=== PATIENT | male | born 1970 | race Caucasian/White ===

== ENCOUNTER 2017-10-04 08:58 | Inpatient (IN) | payer OTHER ==
[2017-10-04] VITALS (10 sets, daily range): BP systolic 140–177; BP diastolic 55–99
[~2017-10-04] VITALS: Ht 177.8 cm; Wt 91.3 kg
--- NOTE | ~2017-10-04 | CON ---
[place], [place] REPORT OF CONSULTATION NAME: PAYAL PÉREZ UNIT #: [id number] ROOM: 511 DOCTOR: KAYKAY QUIROZ MD BIRTHDATE: [birth year] DOS: 10/07/2017 CHIEF COMPLAINT: "I am not sleeping." HISTORY OF PRESENT ILLNESS: This is a 47-year-old white male who presented to the [facility] emergency room with complaints of sudden and severe abdominal pain. The patient has been hospitalized now on the 5th floor as this has been continued to be worked up and resolved. From a psychiatric standpoint, the patient sees in [place] and does not have a counselor. He has been prescribed Celexa 40 mg at bedtime and states that up until this point that the Celexa was effective at controlling his mood and depression. At home prior to these physical issues, he reports good sleep and appetite, good ability to attend to his ADLs and no side effects from the Celexa. He does note that since he has been in the hospital, his sleep has been disturbed and that the Restoril that has been prescribed for him has been ineffective to date. He requested no medication changes be made other than perhaps a different sleeping medication. MENTAL STATUS: He is alert and oriented with some gaps. Mood does seem to be somewhat depressed, but it seems situationally based. He is rather flat and blunted, but he does brighten upon approach and is able to even joke. There is no hypomania or jose armando. There are no auditory or visual hallucinations. No delusions, no paranoia. Short, intermediate, and long-term memory for the most part are intact. DIAGNOSIS: Major depression, recurrent. PLAN: I will maintain him on his Celexa 40 mg at bedtime. Discontinue Restoril in lieu of Halcion 0.25 mg at bedtime as needed for sleep. Should this not be effective, please consult me and I will be happy to see the patient again. KAYKAY QUIROZ MD CM:CONSTR:REPORT OF CONSULTATION 0840 10/07/17 0912 interface
[~2017-10-04 08:58] MED LIST: CELEXA40 MG PO; CLARITIN10 MG PO; COMPAZINE10 MG PO; CORTISPORIN 1%-10 M1 OT; MOTRIN800 MG PO; NORFLEX100 MG PO; RISPERDAL0.5 MG PO; TRAMADOL HCL50 MG PO; TRAZODONE100 MG PO; TRIMOX500 MG PO; ZANTAC150 MG PO; ZOLOFT100 MG PO
[2017-10-04 09:53] LABS: HEMATOCRIT 48.2 % (42.0-52.0); HEMOGLOBIN 17.3 g/dl (14.0-18.0); MEAN CELL VOLUME 92.2 fl (80.0-94.0); MEAN CORPUSCULAR HGB 33.1 pg (27.0-31.0); MEAN CORPUSCULAR HGB CONC 35.9 g/dl (33.0-37.0); MEAN PLATELET VOLUME 8.9 fl (9.6-12.3); PLATELET COUNT AUTOMATED 266 10*3/uL (130-400); RED BLOOD COUNT 5.23 10*6/uL (4.50-5.90); RED CELL DISTRI WIDTH 12.6 % (0-14.5); WHITE BLOOD COUNT 15.9 10*3/uL (4.8-10.8)
[2017-10-04 10:10] LABS: ALBUMIN 4.7 gm/dl (3.1-4.5); CREATININE 2.46 mg/dL (0.70-1.30); POTASSIUM 4.8 mmol/L (3.5-5.1); TOTAL PROTEIN 8.4 gm/dL (6.4-8.2)
[2017-10-04 10:11] LABS: PLATELET SUFFICIENCY NORMAL (NORMAL); TOTAL CELLS COUNTED 100 #CELLS
--- NOTE | 2017-10-04 11:00 | NUR ---
PATIENT STATES THAT DILAUDID HAS NOT HELPED PATIENT. DR MAZA NOTIFIED.
--- NOTE | 2017-10-04 13:26 | NUR ---
PATIENT IS SAYING PAIN IS 10/10 AT THIS TIME.
--- NOTE | 2017-10-04 13:32 | NUR ---
NOTIFIED TORIBIO STAFFORD OF PATIENT HR INCREASED FROM 99 TO 124. PATIENT PLACED ONTO ROLLER INSPECTOR AND MENDER AT THIS TIME. VITAL SIGNS RECORDED.
--- NOTE | 2017-10-04 14:32 | NUR ---
SURGERY STATES THAT THEY WILL BE HERE TO GET THE PATIENT. PATIENT IS RESTING IN BED WATCHING TV AT THIS TIME. APPEARS IN NO DISTRESS.
--- NOTE | 2017-10-04 14:42 | NUR ---
REPORT GIVEN TO TANK MUHAMMAD AT THIS TIME ON 5TH FLOOR.
--- NOTE | 2017-10-04 14:49 | NUR ---
SURGERY HERE AT THIS TIME FOR PATIENT TRANSPORT TO [facility]. PATIENT HAS NOW LEFT THE FLOOR.
[2017-10-04 17:20] LABS: BILIRUBIN 1+ (NEGATIVE); BLOOD 3+ (NEGATIVE); CLARITY TURBID (CLEAR); COLOR RED (YELLOW); GLUCOSE NEGATIVE (NEGATIVE); KETONE 1+ (NEGATIVE); NITRITE POSITIVE (NEGATIVE); PH 6.5 (5.0-9.0)
[2017-10-04 17:21] LABS: LEUKO ESTERASE TRACE (NEGATIVE)
[2017-10-04 17:22] LABS: RBC TNTC rbc/hpf (0-2)
--- NOTE | 2017-10-04 17:27 | NUR ---
I JATIN INSERTED A AARON CATHETER, 16 STATELESS. BEFORE REACHING HUB PT HAD A MODERATE AMOUNT OF BLOODY DRAINAGE. CATHETER REMOVED & REINSERTED WITH SAME RESULTS. CALLED TO ROOM. I ALSO BLADDER SCANNED PT FOR 137 ML. INFLATED BALLOON. NO CATHTER FELT IN PTS SCROTUM. URINALYSIS SENT, ALSO ORDERED TEST FOR URINE MYOGLOBIN.
--- NOTE | 2017-10-04 17:44 | NUR ---
DECIDED TO CHANGE FROM LAPAROSCOPY TO LAPAROTOMY. CASE OPENED DUE TO RUPTURED BLADDER.
--- NOTE | 2017-10-04 20:40 | NUR ---
AT 2034 PT JUST ARRIVED TO FLOOR FROM OR...IS PLACED AT BEDSIDE UNABLE TO START IS AT THIS TIME
--- NOTE | 2017-10-04 20:41 | NUR ---
A 47, admitted to 5E, under the services of RADHA Jenkins DO with a diagnosis of ABDOMINAL PAIN. Chief complaint is ACUTE ABDOMINAL PAIN. Patient arrived via ambulance from ER. Monitor applied. Initial assessment completed. Vital signs taken and recorded. RADHA JENKINS DO notified of admission to the unit. Orders received. See assessment for past medical history, medications and allergies. Patient and/or family oriented to unit. visitation policy reviewed. Clothing/patient valuable form completed. MARIANGEL PALACIO
[2017-10-04] MEDS ORDERED: NEURONTIN800 MG PO (21:56)
[2017-10-05] VITALS: BP 118/70
--- NOTE | 2017-10-05 04:00 | NUR ---
PATIENT WALKED IN HALLWAY. NO PROBLEMS NOTED, PATIENT STEADY ON HIS FEET. WALKED APPROX 250 FEET. AARON CATHETER DRAINING RED COLORED URINE. 60CC OUT IN BRI DRAIN.
--- NOTE | 2017-10-05 07:30 | NUR ---
ASSUMED CARE OF PT AT THIS TIME, RESPS EASY AND NONLABORED WITH NO S/S OF DISTRESS CALL LIGHT WITH IN REACH
[2017-10-05 07:56] LABS: BASO % 0.1 % (0.0-1.0); HEMOGLOBIN 13.8 g/dl (14.0-18.0); LYMPH # 0.8 10*3/uL (1.3-4.4); LYMPH % 7.4 % (27.0-41.0); MEAN CELL VOLUME 96.8 fl (80.0-94.0); MEAN CORPUSCULAR HGB 33.7 pg (27.0-31.0); MEAN CORPUSCULAR HGB CONC 34.8 g/dl (33.0-37.0); MEAN PLATELET VOLUME 9.3 fl (9.6-12.3); MONO % 8.5 % (3.0-9.0); NEUT # 9.3 10*3/uL (2.3-7.9); NEUT % 83.6 % (47.0-73.0); RED BLOOD COUNT 4.09 10*6/uL (4.50-5.90); WHITE BLOOD COUNT 11.2 10*3/uL (4.8-10.8)
[2017-10-05 07:57] LABS: HEMATOCRIT 39.6 % (42.0-52.0); PLATELET COUNT AUTOMATED 183 10*3/uL (130-400)
[2017-10-05 08:00] VITALS: BP 125/78
--- NOTE | 2017-10-05 08:00 | NUR ---
[employer] in to talk to patient. Patient states lives at HOME ALONE with . There are 0 steps in the home. Physician: DR ROBIN Pharmacy: [facility] Home health services: NONE Patient's level of ADLs: INDEPENDENT Patient has working utilities: YES DME: NONE Follow-up physician's appointment after d/c: WILL BE MADE PRIOR TO DC Does patient want to access PORTAL?: Discharge plan HOME. SRIKANTH CRAMER
--- NOTE | 2017-10-05 08:02 | NUR ---
PT C/O SURGICAL INCISION PAIN AT THIS TIME AND REQUESTED PAIN MEDICATION ADMINISTERED MORPHINE IVP PRN PER ORDERS WILL MONITOR EFFECTS, CALL LIGHT WITH IN REACH
[2017-10-05 08:16] LABS: ALBUMIN 3.2 gm/dl (3.1-4.5); ALKALINE PHOSPHATASE 77 U/L (45-117); BUN 11 mg/dl (7-24); CHLORIDE 104 mmol/L (98-107); CHOLESTEROL 196 mg/dL (<200); CREATININE 1.05 mg/dL (0.70-1.30); FREE T4 1.36 ng/dl (0.76-1.46); HDL CHOLESTEROL 56 mg/dl (40-60); LDL CHOLESTEROL 122 mg/dL (9-159); PHOSPHOROUS 2.1 mg/dL (2.5-4.9); POTASSIUM 4.1 mmol/L (3.5-5.1); SGOT/AST 26 IU/L (3-35); SGPT/ALT 27 U/L (12-78); SODIUM 138 mmol/L (136-145); TOTAL PROTEIN 6.2 gm/dL (6.4-8.2); TRIGLYCERIDES 90 mg/dl (<150); VLDL CHOLESTEROL 18 mg/dL (6-40)
[2017-10-05 08:21] LABS: THYROID STIM HORMONE (HS) 0.661 uIU/ml (0.358-4.75)
--- NOTE | 2017-10-05 09:15 | NUR ---
PT USING IS AND ACHIEVING A VOLUME OF 1200. ENCOURAGED Q 2 HOUR USE OF 10 BREATHS. LUNG SOUNDS ARE CLEAR.
[2017-10-05 09:43] LABS: VITAMIN D, 25-HYDROXY 14.8 ng/mL (30-100)
--- NOTE | 2017-10-05 09:57 | NUR ---
PRN PAIN MEDICATION EFFECTIVE AT THIS TIME, REPORTS DECREASED PAIN LEVEL AT THIS TIME.
--- NOTE | 2017-10-05 10:31 | NUR ---
This nurse went into evaluate patient surgical incision and dressing is intact to abdomen with no breakthrough drainage or odor noted.
[2017-10-05 12:00] VITALS: BP 131/68
--- NOTE | 2017-10-05 14:48 | NUR ---
this client has a mental jared hx but is not presently here for suicidal ideation, client does not require any intervention at this time.
[2017-10-05 16:00] VITALS: BP 147/80
[2017-10-05 18:50] VITALS: BP 136/74
[2017-10-05 20:00] VITALS: BP 141/73
[2017-10-05] MEDS ORDERED: ZOLOFT100 MG PO (20:39)
[2017-10-05] MEDS ORDERED: GEODON80 MG PO (20:39)
[2017-10-05] MEDS ORDERED: SEROQUEL200 MG PO (20:41)
--- NOTE | 2017-10-05 20:46 | NUR ---
NOTIFIED DR MAZA OF UPDATED MED REC FROM PATIENTS FRIEND BRINGING IN HIS HOME MEDICATIONS. ALSO NOTIFIED HIM OF THE AARON DRAINING A BRIGHTER RED URINE THAN PREVIOUSLY NOTED. STATED HE WILL TAKE A LOOK AT HIS MEDICATIONS. NO NEW ORDERS AT THIS TIME.
--- NOTE | 2017-10-05 22:37 | NUR ---
TALKED TO DR WILLSON ABOUT PATIENTS BRIGHTER RED URINE DRAINING IN THE AARON. NO NEW ORDERS AT THIS TIME.
--- NOTE | 2017-10-05 22:39 | NUR ---
ATTEMPTED TO CONTACT DR QUIROZ FOR CONSULT. NO ANSWER AT THIS TIME.
[2017-10-06] VITALS: BP 139/79
--- NOTE | 2017-10-06 01:29 | NUR ---
PATIENT SLEEPING, RESPIRATIONS EASY/REG, FLUIDS MAINTAINED PER ORDER. NO SXS OF DISTRESS. CALL LIGHT IN REACH.
--- NOTE | 2017-10-06 02:08 | NUR ---
REQUESTED AND RECEIVED MORPHINE IV PER PRN ORDER FOR COMPLAINTS OF BLADDER PAIN RATING A 10. IV FLUIDS MAINTAINED. CALL LIGHT WITHIN REACH. WILL MONITOR FOR EFFECTIVENESS
--- NOTE | 2017-10-06 04:54 | NUR ---
PATIENT WAS C/O DISCOMFORT FROM HIS AARON. UPON ASSESSMENT HIS ABDOMEN WAS DISTENDED AND PATIENT WAS IN A LOT OF PAIN RATING IT A 10/10. HE WAS ALSO VERY NAUSEATED. NOTIFIED DR MAZA AND HE ORDERED STAT BLOOD WORK. NOTIFIED DR GARNETT AND WAS INSTRUCTED FOR GENTLE IRRIGATION WELL STOPPING FLUIDS. AFTER IRRIGATION A TOTAL OF 1450 WAS DRAINED FROM THE PATIENTS AARON. HE VOICED MILD RELIEF. I MEDICATED HIM WITH PRN MORPHINE AND ZOFRAN ORDERED. DR Katy MAZA AND DR Wm STEPHENS CAME TO SEE PATIENT AND DISCUSSED POSSIBLE TRANSFER TO [facility]. THEY ARE CURRENTLY ON THE PHONE WITH DR WILLSON AT THIS TIME.
[2017-10-06 05:08] LABS: BASO % 0.3 % (0.0-1.0); HEMATOCRIT 39.8 % (42.0-52.0); HEMOGLOBIN 13.7 g/dl (14.0-18.0); LYMPH % 10.1 % (27.0-41.0); MEAN CELL VOLUME 96.8 fl (80.0-94.0); MEAN CORPUSCULAR HGB 33.3 pg (27.0-31.0); MEAN CORPUSCULAR HGB CONC 34.4 g/dl (33.0-37.0); MONO # 0.9 10*3/uL (0.1-1.0); NEUT # 7.6 10*3/uL (2.3-7.9); NEUT % 80.2 % (47.0-73.0); PLATELET COUNT AUTOMATED 187 10*3/uL (130-400); RED BLOOD COUNT 4.11 10*6/uL (4.50-5.90); RED CELL DISTRI WIDTH 12.8 % (0-14.5); WHITE BLOOD COUNT 9.4 10*3/uL (4.8-10.8)
--- NOTE | 2017-10-06 05:15 | NUR ---
DR WILLSON AND DR Wm STEPHENS CONVERSING REGARDING PATIENT CONDITION. DR WILLSON WISHING AARON TO BE REMOVED AND 3 WAY CATH PLACED (PREFERS 24 OR 26 GAUGE). ALSO REQUESTING ASTRONOMY TEACHER BE MADE AWARE OF POSSIBLE OR - CARMINA NOTIFIED
[2017-10-06 05:22] LABS: BUN 6 mg/dl (7-24); CHLORIDE 103 mmol/L (98-107); CREATININE 0.97 mg/dL (0.70-1.30); POTASSIUM 3.9 mmol/L (3.5-5.1); SODIUM 136 mmol/L (136-145)
--- NOTE | 2017-10-06 05:28 | NUR ---
BLADDER SCANNED PATIENT WITH A TOTAL OF 19ML. PATIENT STATES HE FEELS MUCH BETTER NOW. ABDOMEN IS STILL DISTENDED. DRY STERILE DRESSING APPLIED TO INCISION SITE AT THIS TIME
--- NOTE | 2017-10-06 05:48 | NUR ---
MEDICATED WITH 1 TIME DOSE DILAUDID IV PER PRN ORDER PRIOR TO CATH EXCHANGE.
--- NOTE | 2017-10-06 06:10 | NUR ---
AARON CATH REMOVED. [address] WAY CATH PLACED WITH IRRIGATION. URINE CLEAR WITH MINIMAL CLOTS. PATIENT TOLERATED WELL
--- NOTE | 2017-10-06 06:35 | NUR ---
DR WILLSON UPDATED BY DR Wm STEPHENS. PER DR WILLSON, SURGERY NOT LIKELY TO BE NECESSARY
--- NOTE | 2017-10-06 07:37 | NUR ---
PHYSICIAN WAS NOTIFIED OF DR. QUIROZ CONSULT. RESPONSE OF NOTIFICATION WAS OKAY I WILL SEE HIM TODAY OR TOMORROW. RAYSHAWN REBOLLEDO
[2017-10-06 08:00] VITALS: BP 149/88
--- NOTE | 2017-10-06 10:34 | NUR ---
MEDICATED WITH PRN IV ZOFRAN FOR NAUSEA. ABDOMEN REMAINS DISTENDED/FIRM/TENDER.
--- NOTE | 2017-10-06 10:41 | NUR ---
MEDICATED WITH PRN IV MORPHINE FOR ABDOMINAL PAIN.
--- NOTE | 2017-10-06 11:24 | NUR ---
DR. WILLSON IN TO SEE PATIENT RE: PLAN OF CARE. PER PATIENT, HE IS NAUSEATED AND UNABLE TO PASS FLATUS. DR. WILLSON INSERTED NGTUBE TO LEFT NARE, PATIENT TOLERATED WELL, OBTAINING CHEST XRAY TO CONFIRM NGT PLACEMENT. NGT CONNECTED TO LOW INTERMITTENT WALL SUCTION, 300ML ORANGE LIQUID OBTAINED UPON INITIAL SUCTION. DR. WILLSON ENTERING ADDITIONAL ORDERS.
[2017-10-06 12:00] VITALS: BP 151/90
--- NOTE | 2017-10-06 12:23 | NUR ---
PATIENT TO RADIOLOGY FOR KUB.
--- NOTE | 2017-10-06 12:55 | NUR ---
MEDICATED WITH PRN IV DILAUDID FOR ABDOMINAL PAIN.
--- NOTE | 2017-10-06 14:25 | NUR ---
PRN IV DILAUDID EFFECTIVE, PER PATIENT.
[2017-10-06 16:00] VITALS: BP 148/90
--- NOTE | 2017-10-06 16:08 | NUR ---
MEDICATED WITH PRN IV ZOFRAN AND DILAUDID FOR C/O NAUSEA AND ABDOMINAL PAIN. NGT IN PLACE TO RIGHT NARE ON LOW INTERMITTENT WALL SUCTION ORDERED.
[2017-10-06 20:00] VITALS: BP 142/91
--- NOTE | 2017-10-06 22:20 | NUR ---
PT MEDICATED WITH PRN RESTORIL PER PT REQUEST TO HELP PROMOTE SLEEP. PT ENCOURAGED TO TURN TV AND LIGHTS OFF. PT STATES HE WILL LATER.
--- NOTE | 2017-10-06 22:24 | NUR ---
DR. WILLSON PHONED RE PT'S PO MEDS. OK TO GIVE PO MEDS WITH SMALL SIPS OF WATER, TURN OFF NG TUBE FOR 2 HOURS AFTER MEDS GIVEN.
--- NOTE | 2017-10-06 22:30 | NUR ---
PT STATES PRN DILAUDID WAS EFFECTIVE FOR PAIN RELIEF. PT AWAKE IN BED WATCHING TV.
[2017-10-07] VITALS: BP 136/91
--- NOTE | 2017-10-07 01:00 | NUR ---
PT RESTING QUIETLY IN BED WITH EYES CLOSED. PRN SLEEP AID EFFECTIVE.
--- NOTE | 2017-10-07 02:54 | NUR ---
24 HR chart check completed.
--- NOTE | 2017-10-07 05:00 | NUR ---
PRN DILAUDID EFFECTIVE FOR PAIN RELIEF. PT RESTING QUIETLY IN BED.
[2017-10-07 05:57] LABS: BASO % 0.4 % (0.0-1.0); EOS # 0.1 10*3/uL (0.0-0.4); EOS % 0.6 % (1.0-4.0); HEMATOCRIT 38.3 % (42.0-52.0); LYMPH % 12.1 % (27.0-41.0); MEAN CORPUSCULAR HGB 32.9 pg (27.0-31.0); MEAN CORPUSCULAR HGB CONC 33.9 g/dl (33.0-37.0); MEAN PLATELET VOLUME 9.2 fl (9.6-12.3); MONO # 0.9 10*3/uL (0.1-1.0); MONO % 10.7 % (3.0-9.0); NEUT % 75.9 % (47.0-73.0); PLATELET COUNT AUTOMATED 191 10*3/uL (130-400); RED BLOOD COUNT 3.95 10*6/uL (4.50-5.90); RED CELL DISTRI WIDTH 12.4 % (0-14.5); WHITE BLOOD COUNT 7.9 10*3/uL (4.8-10.8)
[2017-10-07 06:02] LABS: BUN 6 mg/dl (7-24); CHLORIDE 102 mmol/L (98-107); CREATININE 0.79 mg/dL (0.70-1.30); POTASSIUM 3.6 mmol/L (3.5-5.1); SODIUM 135 mmol/L (136-145)
--- NOTE | 2017-10-07 07:53 | NUR ---
Shift chart check completed.
[2017-10-07 08:00] VITALS: BP 140/84
--- NOTE | 2017-10-07 08:29 | NUR ---
PATIENT MEDICATED WITH IVP DILAUDID FOR PAIN IN HIS ABDOMEN RATED 9/10
--- NOTE | 2017-10-07 09:29 | NUR ---
PATIENT STATES MEDICATION EFFECTIVE
--- NOTE | 2017-10-07 11:44 | NUR ---
PATIENT MEDICATED WITH IVP DILAUDID FOR PAIN IN HIS ABDOMENT RATED 9/10
[2017-10-07 12:00] VITALS: BP 144/80
--- NOTE | 2017-10-07 15:29 | NUR ---
PATIENT MEDICATED WITH IPV DILAUDID FOR PAIN IN HIS ABDOMEN RATED 8/10
[2017-10-07 16:00] VITALS: BP 146/84
--- NOTE | 2017-10-07 16:30 | NUR ---
PATIENT STATES MEDICATION EFFECTIVE
--- NOTE | 2017-10-07 18:18 | NUR ---
PATIENT HAD A VERY LARGE FORMED BOWEL MOVEMENT. NOTIFIED DEMETRIS. HE IS ALSO AWARE THAT PATIENT'S NG TUBE CAME OUT.
[2017-10-07 20:00] VITALS: BP 147/71
--- NOTE | 2017-10-07 20:11 | NUR ---
MEDICATED WITH PRN DILAUDID FOR C/O ABDOMINAL PAIN AT INC. RATES 07/24.
--- NOTE | 2017-10-07 23:30 | NUR ---
PT RESTING QUIETLY IN BED WITH EYES CLOSED. NO S/S OF DISTRESS NOTED. CALL LIGHT IN REACH.
[2017-10-08] VITALS: BP 156/81
[2017-10-08 06:27] LABS: BASO % 0.3 % (0.0-1.0); EOS # 0.1 10*3/uL (0.0-0.4); EOS % 1.3 % (1.0-4.0); HEMATOCRIT 36.9 % (42.0-52.0); LYMPH # 1.1 10*3/uL (1.3-4.4); LYMPH % 13.6 % (27.0-41.0); MEAN CELL VOLUME 96.6 fl (80.0-94.0); MEAN CORPUSCULAR HGB CONC 35.2 g/dl (33.0-37.0); MEAN PLATELET VOLUME 9.1 fl (9.6-12.3); MONO # 0.7 10*3/uL (0.1-1.0); MONO % 8.3 % (3.0-9.0); NEUT % 76.1 % (47.0-73.0); PLATELET COUNT AUTOMATED 195 10*3/uL (130-400); RED BLOOD COUNT 3.82 10*6/uL (4.50-5.90); RED CELL DISTRI WIDTH 12.4 % (0-14.5); WHITE BLOOD COUNT 7.9 10*3/uL (4.8-10.8)
[2017-10-08 06:46] LABS: BUN 5 mg/dl (7-24); CHLORIDE 103 mmol/L (98-107); POTASSIUM 3.6 mmol/L (3.5-5.1); SODIUM 136 mmol/L (136-145)
[2017-10-08 06:48] LABS: CREATININE 0.73 mg/dL (0.70-1.30)
[2017-10-08 08:00] VITALS: BP 128/80
--- NOTE | 2017-10-08 08:40 | NUR ---
Medicated with dilaudid per prn order for complaints of abdominal pain. States pain is 9/10.
--- NOTE | 2017-10-08 09:30 | NUR ---
States that medication effective for pain.
[2017-10-08 12:00] VITALS: BP 145/77
--- NOTE | 2017-10-08 12:05 | NUR ---
Dr. Garber in and saw pt. States he is going to advance his diet and dc CBI, states to attach logan to leg bag.
--- NOTE | 2017-10-08 13:40 | NUR ---
Medicated with dilaudid per prn order for complaints of abdominal pain. States pain is 9/10.
--- NOTE | 2017-10-08 15:10 | NUR ---
CBI stopped per order and blue sterile cath plug placed in third lumen of catheter. Explained leg bag to pt and he states he would rather have it changed prior to discharge tomorrow. Explained how to use leg bag including emptying of bag and pt states it looks pretty easy.
[2017-10-08 16:00] VITALS: BP 152/76
[2017-10-08 20:00] VITALS: BP 140/69
[2017-10-09] VITALS: BP 153/90
--- NOTE | 2017-10-09 03:29 | NUR ---
PATIENT MEDICATED WITH PRN DILAUDID FOR C/O ABD PAIN RATED 9/10 ON A 0/10 PAIN SCALE
--- NOTE | 2017-10-09 03:29 | NUR ---
IV started right antecubital with #22 protective cath after 1 attempts. Site prepped with Chloroprep. Sterile dressing applied. Patient tolerated procedure well. IV infusing at 125 cc/hr. MELVIN SILVEIRA
[2017-10-09 06:23] LABS: BASO % 0.2 % (0.0-1.0); EOS # 0.1 10*3/uL (0.0-0.4); EOS % 1.7 % (1.0-4.0); HEMATOCRIT 38.2 % (42.0-52.0); HEMOGLOBIN 13.4 g/dl (14.0-18.0); LYMPH % 15.4 % (27.0-41.0); MEAN CORPUSCULAR HGB 33.7 pg (27.0-31.0); MEAN CORPUSCULAR HGB CONC 35.1 g/dl (33.0-37.0); MEAN PLATELET VOLUME 9.1 fl (9.6-12.3); MONO # 0.6 10*3/uL (0.1-1.0); MONO % 9.5 % (3.0-9.0); NEUT # 4.8 10*3/uL (2.3-7.9); NEUT % 72.7 % (47.0-73.0); PLATELET COUNT AUTOMATED 217 10*3/uL (130-400); RED BLOOD COUNT 3.98 10*6/uL (4.50-5.90); RED CELL DISTRI WIDTH 12.1 % (0-14.5); WHITE BLOOD COUNT 6.6 10*3/uL (4.8-10.8)
[2017-10-09 07:01] LABS: BUN 5 mg/dl (7-24); CHLORIDE 103 mmol/L (98-107); POTASSIUM 3.7 mmol/L (3.5-5.1); SODIUM 135 mmol/L (136-145)
[2017-10-09 07:03] LABS: CREATININE 0.68 mg/dL (0.70-1.30)
--- NOTE | 2017-10-09 07:53 | NUR ---
PT REQUESTED AND WAS MEDICATED WITH DILAUDID FOR C/O ABDOMINAL PAIN. RESP EASY AND NONLABORED IVF INFUSING PER ORDERS. CALL LIGHT IN REACH. WILL MONITOR.
[2017-10-09 08:00] VITALS: BP 146/82
--- NOTE | 2017-10-09 09:00 | NUR ---
DIALUDID EFFECTIVE PER PT.
--- NOTE | 2017-10-09 11:36 | NUR ---
PT REQUESTED AND WAS MEDICATED WITH DILAUDID IV FOR C/O ABDOMINAL PAIN. CALL LIGHT IN REACH, WILL MONITOR PT INSTRUCTED ON BRI DRAIN/AARON LEG BAG MAINTANCE. PT STATES UNDERSTANDING AND WAS ABLE TO DO A DEMOSTRATION FOR THIS NURSE. PT HAS BM TODAY.
[2017-10-09 12:00] VITALS: BP 163/75
[2017-10-09] MEDS ORDERED: PERCOCET 5-3251 EACH PO (13:45)
--- NOTE | 2017-10-09 13:57 | NUR ---
Discharge instructions reviewed with patient/family. Patient receptive and verbalizes understanding. Follow-up care arranged. Written instructions given to patient/family. JASON GARCÍA
== END 2017-10-09 14:04 | disposition home or self-care (01) | DRG 653 ==
LOC: ED 08:58 → 5E 13:42 → EDHOLD 13:42 → 5E 14:12
PROVIDERS: Emergency Medicine; Internal Medicine; Student in an Organized Health Care Education/Training Program; ADMIT Internal Medicine
PROC: BT101ZZ Fluoroscopy of Bladder using Low Osmolar Contrast (ICD-10-PCS; principal; 2017-10-04)
PROC: 0TQB0ZZ Repair Bladder, Open Approach (ICD-10-PCS; 2017-10-04)
PROC: 0W9J4ZZ Drainage of Pelvic Cavity, Percutaneous Endoscopic Approach (ICD-10-PCS; 2017-10-04)
PROC: 0D9670Z Drainage of Stomach with Drainage Device, Via Natural or Artificial Opening (ICD-10-PCS; 2017-10-04)
DX: N32.89 Other specified disorders of bladder (principal); K65.9 Peritonitis, unspecified; R65.11 Systemic inflammatory response syndrome (SIRS) of non-infectious origin with acute organ dysfunction; N17.0 Acute kidney failure with tubular necrosis; E87.1 Hypo-osmolality and hyponatremia; E83.41 Hypermagnesemia; K56.7 Ileus, unspecified; E87.2 Acidosis; F33.9 Major depressive disorder, recurrent, unspecified; R73.9 Hyperglycemia, unspecified; R74.0 Nonspecific elevation of levels of transaminase and lactic acid dehydrogenase [LDH]; R00.0 Tachycardia, unspecified; Z79.899 Other long term (current) drug therapy; Z82.49 Family history of ischemic heart disease and other diseases of the circulatory system; F12.90 Cannabis use, unspecified, uncomplicated

== ENCOUNTER → 2017-10-11 | Outpatient (CLI) | payer OTHER ==
[~2017-10-11] MED LIST changes: +GEODON80 MG PO; +NEURONTIN800 MG PO; +PERCOCET 5-3251 EACH PO; +SEROQUEL200 MG PO
== END ==
LOC: RAD 07:30
DX: N32.89 Other specified disorders of bladder (principal)

== ENCOUNTER 2018-09-03 09:39 | Emergency (ER) | payer OTHER ==
[~2018-09-03] VITALS: Ht 175.2 cm; Wt 88.5 kg
[2018-09-03 11:49] LABS: BASO % 0.3 % (0.0-1.0); EOS % 0.5 % (1.0-4.0); HEMATOCRIT 46.6 % (42.0-52.0); HEMOGLOBIN 16.4 g/dl (14.0-18.0); LYMPH # 1.1 10*3/uL (1.3-4.4); LYMPH % 13.8 % (27.0-41.0); MEAN CORPUSCULAR HGB 33.1 pg (27.0-31.0); MEAN CORPUSCULAR HGB CONC 35.2 g/dl (33.0-37.0); MEAN PLATELET VOLUME 8.7 fl (9.6-12.3); MONO # 0.8 10*3/uL (0.1-1.0); MONO % 10.6 % (3.0-9.0); NEUT # 5.9 10*3/uL (2.3-7.9); NEUT % 74.7 % (47.0-73.0); PLATELET COUNT AUTOMATED 163 10*3/uL (130-400); RED BLOOD COUNT 4.96 10*6/uL (4.50-5.90); RED CELL DISTRI WIDTH 12.2 % (0-14.5); WHITE BLOOD COUNT 7.8 10*3/uL (4.8-10.8)
[2018-09-03 12:04] LABS: ALBUMIN 3.6 gm/dl (3.1-4.5); ALKALINE PHOSPHATASE 145 U/L (45-117); BUN 7 mg/dl (7-24); CHLORIDE 103 mmol/L (98-107); CREATININE 1.04 mg/dL (0.70-1.30); POTASSIUM 3.9 mmol/L (3.5-5.1); SGOT/AST 21 IU/L (3-35); SGPT/ALT 28 U/L (12-78); SODIUM 135 mmol/L (136-145)
== END 2018-09-03 14:19 | disposition home or self-care (01) ==
LOC: ED 09:39
PROVIDERS: Physician Assistant
DX: S10.93XA Contusion of unspecified part of neck, initial encounter (principal); Z79.899 Other long term (current) drug therapy; X58.XXXA Exposure to other specified factors, initial encounter; Y93.89 Activity, other specified; Y92.89 Other specified places as the place of occurrence of the external cause; Y99.8 Other external cause status

== ENCOUNTER 2023-03-14 15:23 | Emergency (ER) | payer OTHER ==
[~2023-03-14] VITALS: Ht 175.2 cm; Wt 72.6 kg
[2023-03-14 16:43] LABS: BASO % 0.4 % (0.0-1.0); EOS % 0.4 % (1.0-4.0); HEMATOCRIT 41.8 % (42.0-52.0); LYMPH # 1.1 10*3/uL (1.3-4.4); LYMPH % 21.2 % (27.0-41.0); MEAN CELL VOLUME 82.8 fl (80.0-94.0); MEAN CORPUSCULAR HGB 28.9 pg (27.0-31.0); MEAN CORPUSCULAR HGB CONC 34.9 g/dl (33.0-37.0); MEAN PLATELET VOLUME 8.9 fl (9.6-12.3); MONO # 0.5 10*3/uL (0.1-1.0); MONO % 10.2 % (3.0-9.0); NEUT # 3.4 10*3/uL (2.3-7.9); NEUT % 67.6 % (47.0-73.0); PLATELET COUNT AUTOMATED 243 10*3/uL (130-400); RED BLOOD COUNT 5.05 10*6/uL (4.50-5.90); RED CELL DISTRI WIDTH 13.2 % (0-14.5)
[2023-03-14 17:13] LABS: ALKALINE PHOSPHATASE 109 U/L (46-116); BUN 8 mg/dl (9-23); CHLORIDE 104 mmol/L (98-107); LIPASE 42 U/L (12-53); POTASSIUM 3.4 mmol/L (3.4-5.1); SGPT/ALT 10 U/L (10-49); TOTAL PROTEIN 6.9 gm/dL (6.0-8.0)
[2023-03-14 18:49] LABS: BILIRUBIN Negative (Negative); BLOOD Negative (Negative); CLARITY Cloudy (Clear); COLOR Yellow (Yellow); GLUCOSE Negative (Negative); KETONE 3+ (Negative); LEUKO ESTERASE Trace (Negative); NITRITE Negative (Negative); SPECIFIC GRAVITY 1.025 (1.001-1.030)
[2023-03-14 19:01] LABS: RBC 0-2 rbc/hpf (0-2)
[2023-03-14 19:03] LABS: BACTERIA TRACE; MUCOUS TRACE
[2023-03-14 19:38] LABS: URINE AMPHETAMINES Positive (1000ng/ml); URINE BARBITURATES Negative (200ng/ml); URINE BENZODIAZEPINES Negative (200ng/ml); URINE CANNABINOIDS (THC) Negative (50ng/ml); URINE COCAINE Negative (300ng/ml); URINE METHADONE Negative (300ng/ml); URINE OPIATES Negative (300ng/ml); URINE PHENCYCLIDINE Negative (25ng/ml)
[2023-03-14] MEDS ORDERED: ONDANSETRON4 MG SL (20:48)
== END 2023-03-14 21:02 | disposition home or self-care (01) ==
LOC: ED 15:23
PROVIDERS: Nurse Practitioner Family
DX: R10.32 Left lower quadrant pain (principal); R68.83 Chills (without fever); R42 Dizziness and giddiness; F32.A Depression, unspecified; F12.90 Cannabis use, unspecified, uncomplicated; F17.220 Nicotine dependence, chewing tobacco, uncomplicated; Z20.822 Contact with and (suspected) exposure to COVID-19; Z79.899 Other long term (current) drug therapy

== ENCOUNTER 2023-03-20 14:51 | Emergency (ER) | payer OTHER ==
[~2023-03-20] VITALS: Ht 175.2 cm; Wt 68.0 kg
[~2023-03-20 14:51] MED LIST changes: +ONDANSETRON4 MG SL
[2023-03-20 15:54] LABS: BASO % 0.4 % (0.0-1.0); EOS % 0.5 % (1.0-4.0); HEMATOCRIT 37.6 % (42.0-52.0); LYMPH # 1.2 10*3/uL (1.3-4.4); MEAN CORPUSCULAR HGB 28.9 pg (27.0-31.0); MEAN CORPUSCULAR HGB CONC 33.2 g/dl (33.0-37.0); MEAN PLATELET VOLUME 9.2 fl (9.6-12.3); MONO # 0.5 10*3/uL (0.1-1.0); MONO % 8.8 % (3.0-9.0); NEUT # 3.8 10*3/uL (2.3-7.9); NEUT % 68.1 % (47.0-73.0); PLATELET COUNT AUTOMATED 244 10*3/uL (130-400); RED BLOOD COUNT 4.32 10*6/uL (4.50-5.90); RED CELL DISTRI WIDTH 13.7 % (0-14.5); WHITE BLOOD COUNT 5.6 10*3/uL (4.8-10.8)
[2023-03-20 16:11] LABS: ALKALINE PHOSPHATASE 96 U/L (46-116); BUN 9 mg/dl (9-23); CHLORIDE 106 mmol/L (98-107); POTASSIUM 3.8 mmol/L (3.4-5.1); SGPT/ALT 22 U/L (10-49); TOTAL PROTEIN 6.2 gm/dL (6.0-8.0)
[2023-03-20] MEDS ORDERED: DULCOLAX STOOL100 M1 PO (17:11)
== END 2023-03-20 17:17 | disposition home or self-care (01) ==
LOC: ED 14:51
PROVIDERS: Internal Medicine
DX: K59.00 Constipation, unspecified (principal); F17.220 Nicotine dependence, chewing tobacco, uncomplicated; F12.90 Cannabis use, unspecified, uncomplicated; F32.A Depression, unspecified

== ENCOUNTER 2024-06-17 17:57 | Emergency (ER) | payer OTHER ==
[~2024-06-17] VITALS: Ht 180.3 cm; Wt 99.8 kg
[~2024-06-17 17:57] MED LIST changes: +DULCOLAX STOOL100 M1 PO; +HYDROCODONE-AC1 EAC1 PO; +HYDROCODONE-AC1 EAC2 PO; +MUCUS RELIEF600 MG PO; +ONDANSETRON HYDR4 M1 PO; +ZITHROMAX500 MG PO
[2024-06-17] MEDS ORDERED: Ondansetron Hydrochloride 4 MG/2 ML VIAL IV ONE (18:20)
[2024-06-17] MEDS ORDERED: MORPHINE Sulfate 2 MG/ML SYR IV ONE (18:20)
[2024-06-17 18:39] LABS: BASO % 0.5 % (0.0-1.0); EOS # 0.3 10*3/uL (0.0-0.4); EOS % 4.1 % (1.0-4.0); HEMATOCRIT 28.9 % (42.0-52.0); LYMPH # 1.7 10*3/uL (1.3-4.4); LYMPH % 20.5 % (27.0-41.0); MEAN CORPUSCULAR HGB 19.6 pg (27.0-31.0); MEAN CORPUSCULAR HGB CONC 28.4 g/dl (33.0-37.0); MEAN PLATELET VOLUME 8.1 fl (9.6-12.3); MONO # 0.8 10*3/uL (0.1-1.0); MONO % 10.3 % (3.0-9.0); NEUT # 5.2 10*3/uL (2.3-7.9); NEUT % 64.1 % (47.0-73.0); PLATELET COUNT AUTOMATED 298 10*3/uL (130-400); RED BLOOD COUNT 4.19 10*6/uL (4.50-5.90); RED CELL DISTRI WIDTH 21.8 % (0-14.5); WHITE BLOOD COUNT 8.1 10*3/uL (4.8-10.8)
[2024-06-17 18:53] LABS: BUN 5 mg/dl (9-23); CHLORIDE 105 mmol/L (98-107); POTASSIUM 3.7 mmol/L (3.4-5.1)
== END 2024-06-17 22:21 | disposition home or self-care (01) ==
LOC: ED 17:57
PROVIDERS: Emergency Medicine
DX: G89.29 Other chronic pain (principal); M25.511 Pain in right shoulder; M54.50 Low back pain, unspecified; D50.9 Iron deficiency anemia, unspecified; R42 Dizziness and giddiness; N18.31 Chronic kidney disease, stage 3a; F32.A Depression, unspecified; M79.671 Pain in right foot; Z88.8 Allergy status to other drugs, medicaments and biological substances; Z90.49 Acquired absence of other specified parts of digestive tract; Z98.890 Other specified postprocedural states; F12.90 Cannabis use, unspecified, uncomplicated; Z87.891 Personal history of nicotine dependence

== ENCOUNTER 2024-07-05 17:59 | Emergency (ER) | payer OTHER ==
[~2024-07-05] VITALS: Ht 180.3 cm
[2024-07-05] MEDS ORDERED: CETIRIZINE HYDR10 MG PO (19:00)
[2024-07-05] MEDS ORDERED: Carafate1 GM PO (19:00)
[2024-07-05] MEDS ORDERED: BUSPAR15 MG PO (19:01)
[2024-07-05] MEDS ORDERED: AMITRIPTYLINE100 M1 PO (19:01)
[2024-07-05] MEDS ORDERED: OMEPRAZOLE40 MG PO (19:02)
[2024-07-05] MEDS ORDERED: ATARAX,VISTARIL50 MG PO (19:03)
[2024-07-05] MEDS ORDERED: FEROSUL325 M1 PO (19:03)
[2024-07-05] MEDS ORDERED: QUETIAPINE FUM300 M1 PO (19:04)
[2024-07-05] MEDS ORDERED: SODIUM CHLORIDE 0.9% 1,000 ML IV ONE (19:50)
[2024-07-05 19:57] LABS: BASO % 0.5 % (0.0-1.0); EOS # 0.3 10*3/uL (0.0-0.4); HEMATOCRIT 30.2 % (42.0-52.0); LYMPH # 1.2 10*3/uL (1.3-4.4); LYMPH % 14.4 % (27.0-41.0); MEAN CELL VOLUME 72.1 fl (80.0-94.0); MEAN CORPUSCULAR HGB 20.3 pg (27.0-31.0); MEAN CORPUSCULAR HGB CONC 28.1 g/dl (33.0-37.0); MONO # 0.8 10*3/uL (0.1-1.0); MONO % 9.3 % (3.0-9.0); NEUT # 6.1 10*3/uL (2.3-7.9); NEUT % 72.2 % (47.0-73.0); PLATELET COUNT AUTOMATED 234 10*3/uL (130-400); RED BLOOD COUNT 4.19 10*6/uL (4.50-5.90); RED CELL DISTRI WIDTH 25.3 % (0-14.5); WHITE BLOOD COUNT 8.4 10*3/uL (4.8-10.8)
[2024-07-05 20:20] LABS: ALKALINE PHOSPHATASE 137 U/L (46-116); BUN < 5 mg/dl (9-23); CHLORIDE 105 mmol/L (98-107); SGPT/ALT 21 U/L (5-49)
[2024-07-05 20:30] LABS: BILIRUBIN Negative (Negative); BLOOD Negative (Negative); CLARITY Clear (Clear); COLOR Yellow (Yellow); GLUCOSE Negative (Negative); KETONE Negative (Negative); LEUKO ESTERASE Negative (Negative); NITRITE Negative (Negative); PH 6.5 (4.5-8.0); SPECIFIC GRAVITY <= 1.005 (1.001-1.030); UROBILINOGEN 0.2 E.U./dl (0.0-1.0)
[2024-07-05 20:38] LABS: WBC 0-2 wbc/hpf (0-5)
== END 2024-07-05 22:07 | disposition home or self-care (01) ==
LOC: ED 17:59
PROVIDERS: Physician Assistant Medical
DX: D64.9 Anemia, unspecified (principal); R06.02 Shortness of breath; R42 Dizziness and giddiness; M79.604 Pain in right leg; M79.605 Pain in left leg; M25.511 Pain in right shoulder; F32.A Depression, unspecified; F12.90 Cannabis use, unspecified, uncomplicated; Z90.49 Acquired absence of other specified parts of digestive tract; Z98.890 Other specified postprocedural states

== ENCOUNTER → 2024-07-26 | Outpatient (CLI) | payer OTHER ==
[~2024-07-26] MED LIST changes: +AMITRIPTYLINE100 M1 PO; +ATARAX,VISTARIL50 MG PO; +BUSPAR15 MG PO; +CETIRIZINE HYDR10 MG PO; +Carafate1 GM PO; +FEROSUL325 M1 PO; +OMEPRAZOLE40 MG PO; +QUETIAPINE FUM300 M1 PO; +Regadenoson 0.4 MG/5 ML SYR IV ONE; +Technetium Tc 99M Tetrofosmi 0.23 MG KIT IJ SCH
[2024-07-26 08:40] LABS: BILIRUBIN Negative (Negative); BLOOD Negative (Negative); CLARITY Clear (Clear); COLOR Yellow (Yellow); GLUCOSE Negative (Negative); KETONE Negative (Negative); LEUKO ESTERASE Negative (Negative); NITRITE Negative (Negative); PH 6.5 (4.5-8.0); SPECIFIC GRAVITY 1.015 (1.001-1.030); UROBILINOGEN 0.2 E.U./dl (0.0-1.0)
[2024-07-26 08:43] LABS: HEMATOCRIT 43.8 % (42.0-52.0); MEAN CELL VOLUME 81.4 fl (80.0-94.0); MEAN CORPUSCULAR HGB 25.7 pg (27.0-31.0); MEAN CORPUSCULAR HGB CONC 31.5 g/dl (33.0-37.0); MEAN PLATELET VOLUME 8.2 fl (9.6-12.3); PLATELET COUNT AUTOMATED 281 10*3/uL (130-400); RED BLOOD COUNT 5.38 10*6/uL (4.50-5.90); RETICULOCYTE % 1.85 % (0.50-2.50); WHITE BLOOD COUNT 6.5 10*3/uL (4.8-10.8)
[2024-07-26 08:48] LABS: MANUAL DIFF REFLEX YES
[2024-07-26 09:04] LABS: BASOPHILS 3 % (0-1); OVALOCYTES FEW; POLYCHROMASIA SLIGHT; TOTAL CELLS COUNTED 100 #CELLS
[2024-07-26 09:05] LABS: MICROCYTOSIS SLIGHT; PLATELET SUFFICIENCY NORMAL (NORMAL); SCHISTOCYTES FEW
[2024-07-26 09:19] LABS: ALKALINE PHOSPHATASE 190 U/L (46-116); BUN 7 mg/dl (9-23); CHLORIDE 102 mmol/L (98-107); CHOLESTEROL 223 mg/dL (<200); GAMMA GLUTAMYL TRANSPEPTIDASE 64 U/L (0-73); POTASSIUM 4.4 mmol/L (3.4-5.1); SGPT/ALT 34 U/L (5-49); TOTAL PROTEIN 6.9 gm/dL (6.0-8.0); TRIGLYCERIDES 495 mg/dl (<150)
[2024-07-26 10:05] LABS: BACTERIA TRACE; MUCOUS TRACE
[2024-07-26 10:14] LABS: VITAMIN D, 25-HYDROXY 28.9 ng/mL (30-100)
== END | disposition home or self-care (01) ==
LOC: CARD 07-05 07:30 → LAB 01:53 → CARD 07:30
PROVIDERS: Family Medicine; ATTEND Internal Medicine Cardiovascular Disease
DX: R79.89 Other specified abnormal findings of blood chemistry (principal); R53.83 Other fatigue; E78.5 Hyperlipidemia, unspecified; R07.9 Chest pain, unspecified

== ENCOUNTER → 2024-07-30 | Outpatient (CLI) | payer OTHER ==
[~2024-07-30] MED LIST changes: -Regadenoson 0.4 MG/5 ML SYR IV ONE; -Technetium Tc 99M Tetrofosmi 0.23 MG KIT IJ SCH
== END | disposition home or self-care (01) ==
LOC: CARD 07-26 07:03
PROVIDERS: ATTEND Internal Medicine Cardiovascular Disease
DX: I51.7 Cardiomegaly (principal); R06.02 Shortness of breath; R07.89 Other chest pain

== ENCOUNTER 2024-09-17 18:38 | Emergency (ER) | payer OTHER ==
[~2024-09-17] VITALS: Ht 180.3 cm; Wt 93.4 kg
[2024-09-17 19:42] LABS: BASO % 0.5 % (0.0-1.0); EOS # 0.2 10*3/uL (0.0-0.4); EOS % 3.1 % (1.0-4.0); HEMATOCRIT 36.2 % (42.0-52.0); LYMPH # 0.9 10*3/uL (1.3-4.4); LYMPH % 13.7 % (27.0-41.0); MEAN CELL VOLUME 86.4 fl (80.0-94.0); MEAN CORPUSCULAR HGB 27.9 pg (27.0-31.0); MEAN CORPUSCULAR HGB CONC 32.3 g/dl (33.0-37.0); MONO # 0.7 10*3/uL (0.1-1.0); MONO % 10.2 % (3.0-9.0); NEUT # 4.7 10*3/uL (2.3-7.9); PLATELET COUNT AUTOMATED 261 10*3/uL (130-400); RED BLOOD COUNT 4.19 10*6/uL (4.50-5.90); RED CELL DISTRI WIDTH 20.3 % (0-14.5); WHITE BLOOD COUNT 6.5 10*3/uL (4.8-10.8)
[2024-09-17 20:00] LABS: BUN 8 mg/dl (9-23); CHLORIDE 105 mmol/L (98-107); POTASSIUM 3.6 mmol/L (3.4-5.1)
== END 2024-09-17 20:57 | disposition home or self-care (01) ==
LOC: ED 18:38
PROVIDERS: Physician Assistant Medical
DX: S93.409A Sprain of unspecified ligament of unspecified ankle, initial encounter (principal); M25.522 Pain in left elbow; M54.2 Cervicalgia; F32.A Depression, unspecified; Z90.49 Acquired absence of other specified parts of digestive tract; Z98.890 Other specified postprocedural states; F12.90 Cannabis use, unspecified, uncomplicated; W10.8XXA Fall (on) (from) other stairs and steps, initial encounter; Y93.89 Activity, other specified; Y92.009 Unspecified place in unspecified non-institutional (private) residence as the place of occurrence of the external cause; Y99.8 Other external cause status

== ENCOUNTER → 2024-12-12 | Outpatient (CLI) | payer OTHER | END | disposition home or self-care (01) | LOC: RAD 12:30 | PROVIDERS: ATTEND Nurse Practitioner Family | DX: R10.12 Left upper quadrant pain (principal) ==

== ENCOUNTER 2025-02-02 14:31 | Inpatient (IN) | payer OTHER ==
[~2025-02-02] VITALS: Ht 175.2 cm; Wt 106.6 kg
[2025-02-02 14:40] VITALS: BP 134/91
[2025-02-02] MEDS ORDERED: Ondansetron Hydrochloride 4 MG/2 ML VIAL IV ONE (15:10)
[2025-02-02] MEDS ORDERED: fentaNYL CITRATE/PF 50 MCG/ML SYRINGE IV ONE (15:10)
[2025-02-02 15:16] LABS: BASO % 0.2 % (0.0-1.0); EOS % 0.2 % (1.0-4.0); HEMATOCRIT 43.8 % (42.0-52.0); MEAN CELL VOLUME 79.8 fl (80.0-94.0); MEAN CORPUSCULAR HGB 25.9 pg (27.0-31.0); MEAN CORPUSCULAR HGB CONC 32.4 g/dl (33.0-37.0); MEAN PLATELET VOLUME 8.6 fl (9.6-12.3); MONO # 0.8 10*3/uL (0.1-1.0); MONO % 6.5 % (3.0-9.0); NEUT # 10.3 10*3/uL (2.3-7.9); NEUT % 82.7 % (47.0-73.0); PLATELET COUNT AUTOMATED 371 10*3/uL (130-400); RED BLOOD COUNT 5.49 10*6/uL (4.50-5.90); RED CELL DISTRI WIDTH 17.6 % (0-14.5); WHITE BLOOD COUNT 12.5 10*3/uL (4.8-10.8)
[2025-02-02 15:31] LABS: ACT PARTIAL THROMBO TIME 27.3 SECONDS (20.0-32.1)
[2025-02-02 15:32] LABS: ALKALINE PHOSPHATASE 161 U/L (46-116); BUN 10 mg/dl (9-23); CHLORIDE 103 mmol/L (98-107); LIPASE 35 U/L (12-53); SGPT/ALT 31 U/L (5-49); TOTAL PROTEIN 7.4 gm/dL (6.0-8.0)
[2025-02-02] MEDS ORDERED: SODIUM CHLORIDE 0.9% 1,000 ML IV ONE (16:05)
[2025-02-02] MEDS ORDERED: metroNIDAZOLE 100 ML IV ONE (17:10)
[2025-02-02] MEDS ORDERED: Ampicillin Sodium/Sulbactam 3 GM in SODIUM CHLORIDE 0.9% 100 ML IV ONE (17:15)
[2025-02-02] MEDS ORDERED: HYDROmorphone Hydrochloride 1 MG/ML SYR IV ONE (17:15)
[2025-02-02 18:00] VITALS: BP 158/99
[2025-02-02] MEDS ORDERED: MORPHINE Sulfate 2 MG/ML SYR IV PRN (18:00)
[2025-02-02] MEDS ORDERED: Ondansetron Hydrochloride 4 MG/2 ML VIAL IV PRN (18:00)
[2025-02-02] MEDS ORDERED: SODIUM CHLORIDE 0.9% 1,000 ML IV SCH (18:00)
[2025-02-02 20:00] VITALS: BP 137/92
[2025-02-02] MEDS ORDERED: diazePAM 10 MG/2 ML SYR IV ONE (22:25)
[2025-02-03] MEDS ORDERED: Piperacillin Sodium/Tazobact 50 ML IV SCH
[2025-02-03 05:17] LABS: BUN 12 mg/dl (9-23); CHLORIDE 105 mmol/L (98-107); CHOLESTEROL 131 mg/dL (<200); LDL CHOLESTEROL 75 mg/dL (9-159); POTASSIUM 3.9 mmol/L (3.4-5.1); TRIGLYCERIDES 130 mg/dl (<150)
[2025-02-03] MEDS ORDERED: Pantoprazole Sodium 40 MG VIAL IV SCH (06:00)
[2025-02-03 06:12] LABS: BASO % 0.3 % (0.0-1.0); EOS # 0.1 10*3/uL (0.0-0.4); EOS % 0.5 % (1.0-4.0); MEAN CELL VOLUME 82.1 fl (80.0-94.0); MEAN CORPUSCULAR HGB 25.3 pg (27.0-31.0); MEAN CORPUSCULAR HGB CONC 30.8 g/dl (33.0-37.0); MONO # 1.1 10*3/uL (0.1-1.0); MONO % 9.6 % (3.0-9.0); NEUT # 8.3 10*3/uL (2.3-7.9); NEUT % 75.9 % (47.0-73.0); PLATELET COUNT AUTOMATED 324 10*3/uL (130-400); RED BLOOD COUNT 4.75 10*6/uL (4.50-5.90); RED CELL DISTRI WIDTH 17.3 % (0-14.5); WHITE BLOOD COUNT 10.9 10*3/uL (4.8-10.8)
[2025-02-03 08:00] VITALS: BP 136/92
[2025-02-03 08:55] LABS: BILIRUBIN Negative (Negative); BLOOD Negative (Negative); CLARITY Clear (Clear); COLOR Yellow (Yellow); GLUCOSE Negative (Negative); KETONE Trace (Negative); LEUKO ESTERASE Negative (Negative); NITRITE Negative (Negative); SPECIFIC GRAVITY >= 1.030 (1.001-1.030)
[2025-02-03 10:03] LABS: BACTERIA TRACE; MUCOUS 2+
[2025-02-03] MEDS ORDERED: SODIUM CHLORIDE 0.9% 1,000 ML IV SCH (10:45)
[2025-02-03 12:00] VITALS: BP 124/83
[2025-02-03 16:00] VITALS: BP 134/82
[2025-02-03 20:00] VITALS: BP 158/89
[2025-02-03] MEDS ORDERED: diphenhydrAMINE hydrochloride 50 MG/ML VIAL IV ONE (22:25)
[2025-02-04] VITALS (10 sets, daily range): BP systolic 146–158; BP diastolic 79–95
[2025-02-04 06:05] LABS: BASO # 0.1 10*3/uL (0.0-0.1); BASO % 0.6 % (0.0-1.0); EOS # 0.2 10*3/uL (0.0-0.4); EOS % 2.2 % (1.0-4.0); HEMATOCRIT 38.7 % (42.0-52.0); MEAN CELL VOLUME 82.9 fl (80.0-94.0); MEAN CORPUSCULAR HGB 25.7 pg (27.0-31.0); MEAN PLATELET VOLUME 8.7 fl (9.6-12.3); MONO # 0.7 10*3/uL (0.1-1.0); MONO % 8.6 % (3.0-9.0); NEUT # 6.4 10*3/uL (2.3-7.9); NEUT % 73.7 % (47.0-73.0); PLATELET COUNT AUTOMATED 301 10*3/uL (130-400); RED BLOOD COUNT 4.67 10*6/uL (4.50-5.90); RED CELL DISTRI WIDTH 16.9 % (0-14.5); WHITE BLOOD COUNT 8.7 10*3/uL (4.8-10.8)
[2025-02-04 06:29] LABS: ALKALINE PHOSPHATASE 126 U/L (46-116); BUN 11 mg/dl (9-23); CHLORIDE 103 mmol/L (98-107); POTASSIUM 3.6 mmol/L (3.4-5.1); SGPT/ALT 21 U/L (5-49); TOTAL PROTEIN 6.3 gm/dL (6.0-8.0)
[2025-02-04 08:41] LABS: ACT PARTIAL THROMBO TIME 28.2 SECONDS (20.0-32.1)
[2025-02-04] MEDS ORDERED: Lactated Ringer's Solution 1,000 ML IV ONE ×2 (11:48→14:48)
[2025-02-04] MEDS ORDERED: BUPivacaine 0.5% 10 ML VIAL ONE (11:48)
[2025-02-04] MEDS ORDERED: MORPHINE Sulfate 5 MG/10 ML PF ONE (12:04)
[2025-02-04] MEDS ORDERED: BUPIVACAINE 0.75% ONE (12:04)
[2025-02-04] MEDS ORDERED: SODIUM CHLORIDE 0.9% 100 ML IV ONE (13:17)
[2025-02-04] MEDS ORDERED: MORPHINE Sulfate 30 MG/30 ML SYR IV SCH (13:25)
[2025-02-04] MEDS ORDERED: POTASSIUM CH/0.45 NS 1,000 ML IV SCH (13:35)
[2025-02-04] MEDS ORDERED: MORPHINE Sulfate 50 MG in SODIUM CHLORIDE 0.9% 45 ML IV SCH (14:00)
[2025-02-04] MEDS ORDERED: Ondansetron Hydrochloride 4 MG/2 ML VIAL IV ONE (15:26)
[2025-02-04] MEDS ORDERED: Lidocaine Hydrochloride 5 ML VIAL IV ONE (15:26)
[2025-02-04] MEDS ORDERED: SEVOFLURANE 250 ML BOT INH ONE (15:26)
[2025-02-04] MEDS ORDERED: SUGAMMADEX SODIUM 200 MG/2 ML VIAL IV ONE (15:26)
[2025-02-04] MEDS ORDERED: Succinylcholine Chloride 200 MG/10 ML VIAL IV ONE (15:26)
[2025-02-04] MEDS ORDERED: ROCURONIUM BROMIDE 50 MG/5 ML SYRINGE IV ONE (15:26)
[2025-02-04] MEDS ORDERED: Dexamethasone Sodium Phospha 4 MG/ML VIAL IV ONE (15:26)
[2025-02-04] MEDS ORDERED: Phenylephrine Hydrochloride 1 MG/10 ML SYRINGE IV ONE (15:26)
[2025-02-04] MEDS ORDERED: PROPOFOL 200 MG/20 ML VIAL IV ONE (15:26)
[2025-02-04] MEDS ORDERED: Ketamine Hydrochloride 50 MG/5 ML SYRINGE IV ONE (15:47)
[2025-02-04] MEDS ORDERED: fentaNYL CITRATE 100 MCG/2 ML VIAL IV ONE (15:47)
[2025-02-04] MEDS ORDERED: Midazolam Hydrochloride 2 MG/2 ML VIAL IV ONE (15:47)
[2025-02-04] MEDS ORDERED: diphenhydrAMINE hydrochloride 50 MG/ML VIAL IV ONE (23:10)
[2025-02-04] MEDS ORDERED: Lactated Ringer's Solution 500 ML IV SCH (23:55)
[2025-02-05] VITALS: BP 137/80
[2025-02-05] MEDS ORDERED: Lactated Ringer's Solution 500 ML IV ONE (00:36)
[2025-02-05] MEDS ORDERED: Haloperidol Lactate 5 MG/ML AMP IM ONE (00:40)
[2025-02-05] MEDS ORDERED: POTASSIUM CL D5/.45NS SOL. 1,000 ML IV SCH ×2 (01:30→14:25)
[2025-02-05] MEDS ORDERED: POTASSIUM CL D5/.45NS SOL. 1,000 ML IV ONE ×2 (01:40→02:03)
[2025-02-05 03:00] VITALS: BP 118/69
[2025-02-05 06:43] LABS: BUN 9 mg/dl (9-23); CHLORIDE 102 mmol/L (98-107); POTASSIUM 4.2 mmol/L (3.4-5.1)
[2025-02-05 08:00] VITALS: BP 129/50
[2025-02-05] MEDS ORDERED: Enoxaparin Sodium 40 MG/0.4 ML SYR SC SCH (08:00)
[2025-02-05 08:27] LABS: HEMATOCRIT 37.5 % (42.0-52.0); MEAN CELL VOLUME 82.1 fl (80.0-94.0); MEAN CORPUSCULAR HGB 25.6 pg (27.0-31.0); MEAN CORPUSCULAR HGB CONC 31.2 g/dl (33.0-37.0); MEAN PLATELET VOLUME 8.9 fl (9.6-12.3); PLATELET COUNT AUTOMATED 367 10*3/uL (130-400); RED BLOOD COUNT 4.57 10*6/uL (4.50-5.90); WHITE BLOOD COUNT 13.8 10*3/uL (4.8-10.8)
[2025-02-05 08:29] LABS: MANUAL DIFF REFLEX YES
[2025-02-05 09:17] LABS: OVALOCYTES FEW; PLATELET SUFFICIENCY NORMAL (NORMAL); POLYCHROMASIA SLIGHT; ROULEAUX SLIGHT; TOTAL CELLS COUNTED 100 #CELLS
[2025-02-05] MEDS ORDERED: diphenhydrAMINE hydrochloride 50 MG/ML VIAL IV ONE (09:40)
[2025-02-05] MEDS ORDERED: Amitriptyline Hydrochloride 50 MG TAB PO SCH ×2 (09:55→22:00)
[2025-02-05] MEDS ORDERED: hydrOXYzine pamoate 25 MG CAP PO SCH (10:00)
[2025-02-05] MEDS ORDERED: busPIRone Hydrochloride 15 MG TAB PO SCH (10:00)
[2025-02-05] MEDS ORDERED: Tamsulosin Hydrochloride 0.4 MG CAP PO SCH (10:00)
[2025-02-05 12:00] VITALS: BP 132/69
[2025-02-05 15:06] VITALS: BP 137/77
[2025-02-05 20:00] VITALS: BP 145/86
[2025-02-05] MEDS ORDERED: QUEtiapine FUMARATE 300 MG TAB PO SCH (22:00)
[2025-02-06] VITALS: BP 120/84
[2025-02-06 06:41] LABS: BUN 11 mg/dl (9-23); CHLORIDE 101 mmol/L (98-107); POTASSIUM 3.7 mmol/L (3.4-5.1)
[2025-02-06 07:06] LABS: BASO % 0.3 % (0.0-1.0); EOS # 0.1 10*3/uL (0.0-0.4); EOS % 0.8 % (1.0-4.0); HEMATOCRIT 30.7 % (42.0-52.0); MEAN CELL VOLUME 80.4 fl (80.0-94.0); MEAN CORPUSCULAR HGB 25.7 pg (27.0-31.0); MEAN CORPUSCULAR HGB CONC 31.9 g/dl (33.0-37.0); MEAN PLATELET VOLUME 9.1 fl (9.6-12.3); MONO # 1.4 10*3/uL (0.1-1.0); MONO % 15.8 % (3.0-9.0); NEUT # 6.4 10*3/uL (2.3-7.9); NEUT % 71.7 % (47.0-73.0); PLATELET COUNT AUTOMATED 268 10*3/uL (130-400); RED BLOOD COUNT 3.82 10*6/uL (4.50-5.90); RED CELL DISTRI WIDTH 17.2 % (0-14.5); WHITE BLOOD COUNT 8.9 10*3/uL (4.8-10.8)
[2025-02-06 08:00] VITALS: BP 119/74
[2025-02-06] MEDS ORDERED: Acetaminophen/Oxycodone 5 MG/325 MG TABLET PO PRN (10:05)
[2025-02-06 12:00] VITALS: BP 147/81
[2025-02-06 16:00] VITALS: BP 123/76
[2025-02-06 20:00] VITALS: BP 146/87
[2025-02-07] VITALS: BP 109/64
[2025-02-07 05:40] LABS: BUN 8 mg/dl (9-23); CHLORIDE 99 mmol/L (98-107); POTASSIUM 3.7 mmol/L (3.4-5.1)
[2025-02-07 06:14] LABS: BASO % 0.4 % (0.0-1.0); EOS # 0.2 10*3/uL (0.0-0.4); EOS % 2.5 % (1.0-4.0); HEMATOCRIT 30.1 % (42.0-52.0); MEAN CELL VOLUME 82.2 fl (80.0-94.0); MEAN CORPUSCULAR HGB 25.7 pg (27.0-31.0); MEAN CORPUSCULAR HGB CONC 31.2 g/dl (33.0-37.0); MEAN PLATELET VOLUME 9.2 fl (9.6-12.3); MONO # 0.8 10*3/uL (0.1-1.0); MONO % 9.4 % (3.0-9.0); NEUT # 6.6 10*3/uL (2.3-7.9); NEUT % 79.7 % (47.0-73.0); PLATELET COUNT AUTOMATED 277 10*3/uL (130-400); RED BLOOD COUNT 3.66 10*6/uL (4.50-5.90); RED CELL DISTRI WIDTH 16.9 % (0-14.5); WHITE BLOOD COUNT 8.3 10*3/uL (4.8-10.8)
[2025-02-07 08:00] VITALS: BP 120/71
[2025-02-07] MEDS ORDERED: OXYCODONE-ACET1 EAC3 PO (11:01)
[2025-02-07] MEDS ORDERED: TAMSULOSIN HCL0.4 MG PO (11:01)
[2025-02-07] MEDS ORDERED: DULCOLAX STOOL100 M1 PO (11:02)
[2025-02-07] MEDS ORDERED: LIPITOR40 MG PO (12:29)
== END 2025-02-07 12:07 | disposition home or self-care (01) | DRG 710 ==
LOC: ED 14:31 → EDHOLD 17:29 → 5E 17:29
PROVIDERS: Emergency Medicine; Internal Medicine; Student in an Organized Health Care Education/Training Program; ADMIT Internal Medicine; ATTEND Internal Medicine
PROC: 0DTF0ZZ Resection of Right Large Intestine, Open Approach (ICD-10-PCS; principal; 2025-02-04)
DX: A41.9 Sepsis, unspecified organism (principal); K56.699 Other intestinal obstruction unspecified as to partial versus complete obstruction; K40.90 Unilateral inguinal hernia, without obstruction or gangrene, not specified as recurrent; A04.9 Bacterial intestinal infection, unspecified; K63.89 Other specified diseases of intestine; E87.1 Hypo-osmolality and hyponatremia; D50.9 Iron deficiency anemia, unspecified; J30.2 Other seasonal allergic rhinitis; R73.9 Hyperglycemia, unspecified; D64.9 Anemia, unspecified; F41.9 Anxiety disorder, unspecified; F17.200 Nicotine dependence, unspecified, uncomplicated; K21.9 Gastro-esophageal reflux disease without esophagitis; N18.31 Chronic kidney disease, stage 3a; E66.9 Obesity, unspecified; R65.20 Severe sepsis without septic shock; F33.2 Major depressive disorder, recurrent severe without psychotic features; Z79.899 Other long term (current) drug therapy; Z90.49 Acquired absence of other specified parts of digestive tract; Z82.49 Family history of ischemic heart disease and other diseases of the circulatory system; Z78.9 Other specified health status; Z79.01 Long term (current) use of anticoagulants; Z79.2 Long term (current) use of antibiotics; Z68.34 Body mass index [BMI] 34.0-34.9, adult; N43.3 Hydrocele, unspecified

== ENCOUNTER → 2025-04-01 | Day surgery (SDC) | payer OTHER ==
[~2025-04-01] VITALS: Ht 175.2 cm; Wt 102.5 kg
[~2025-04-01] MED LIST changes: +LIPITOR40 MG PO; +Lidocaine Hydrochloride 5 ML VIAL IV ONE; +OXYCODONE-ACET1 EAC3 PO; +PROPOFOL 200 MG/20 ML VIAL IV ONE; +SODIUM CHLORIDE 0.9% 500 ML IV ONE; +TAMSULOSIN HCL0.4 MG PO
[2025-04-01 07:42] VITALS: BP 144/89
[2025-04-01 08:59] VITALS: BP 134/66
[2025-04-01 09:14] VITALS: BP 142/75
[2025-04-01 09:28] VITALS: BP 122/71
== END | disposition home or self-care (01) ==
LOC: SDC 03-28 08:00
PROVIDERS: ATTEND Surgery
DX: D12.7 Benign neoplasm of rectosigmoid junction (principal); K63.5 Polyp of colon; K64.8 Other hemorrhoids; K21.9 Gastro-esophageal reflux disease without esophagitis; N18.31 Chronic kidney disease, stage 3a; R65.20 Severe sepsis without septic shock; F41.9 Anxiety disorder, unspecified; F32.A Depression, unspecified; R45.851 Suicidal ideations; R45.850 Homicidal ideations; F12.90 Cannabis use, unspecified, uncomplicated; Z90.49 Acquired absence of other specified parts of digestive tract; Z85.038 Personal history of other malignant neoplasm of large intestine; Z98.890 Other specified postprocedural states; Z79.899 Other long term (current) drug therapy

== ENCOUNTER → 2025-09-02 | Outpatient (CLI) | payer OTHER ==
[~2025-09-02] MED LIST changes: -Lidocaine Hydrochloride 5 ML VIAL IV ONE; -PROPOFOL 200 MG/20 ML VIAL IV ONE; -SODIUM CHLORIDE 0.9% 500 ML IV ONE
== END | disposition home or self-care (01) ==
LOC: CARD 08-30 11:00
PROVIDERS: ATTEND Internal Medicine Cardiovascular Disease
DX: I10 Essential (primary) hypertension (principal); R42 Dizziness and giddiness

== ENCOUNTER 2025-10-19 18:16 | Emergency (ER) | payer OTHER ==
[~2025-10-19] VITALS: Ht 180.3 cm; Wt 102.1 kg
[2025-10-19] MEDS ORDERED: BENADRYL ALLERG50 MG PO (19:31)
== END 2025-10-19 19:46 | disposition home or self-care (01) ==
LOC: ED 18:16
DX: G47.00 Insomnia, unspecified (principal); F32.A Depression, unspecified; Z98.890 Other specified postprocedural states